=== PATIENT | female | born 1965 | race Caucasian/White ===

== ENCOUNTER 2017-11-11 08:16 | Outpatient (CLI) | payer BC | END 2017-11-11 08:17 | disposition home or self-care (01) | LOC: BICMAMMO 08:16 | PROVIDERS: ATTEND Obstetrics & Gynecology | DX: Z12.31 Encounter for screening mammogram for malignant neoplasm of breast (principal) | CPT/HCPCS: 77063; 77067 ==

== ENCOUNTER 2017-11-22 16:33 | Emergency (ER) | payer BC, OTHER ==
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
[2017-11-22 19:04] LABS: Bilirubin Negative (Negative); Blood, Urine Negative (Negative); Clarity Clear (Clear); Glucose, Urine (Dipstick) Negative (Negative); Leukocyte Negative (Negative); Nitrite Negative (Negative); Protein, Urine (Dipstick) Negative (Neg-Trace); Urobilinogen 0.2 mg/dL (0.2-1.0)
[2017-11-22] MEDS ORDERED: Acetaminophen/Codeine 30-300mg Tablet ONE (19:41)
== END 2017-11-22 19:47 | disposition home or self-care (01) ==
LOC: SCSER 16:33
DX: S16.1XXA Strain of muscle, fascia and tendon at neck level, initial encounter (principal); S29.012A Strain of muscle and tendon of back wall of thorax, initial encounter; S10.93XA Contusion of unspecified part of neck, initial encounter; S30.0XXA Contusion of lower back and pelvis, initial encounter; F32.9 Major depressive disorder, single episode, unspecified; Z79.899 Other long term (current) drug therapy; V43.62XA Car passenger injured in collision with other type car in traffic accident, initial encounter
CPT/HCPCS: 70450; 72125; 72170; 81003

== ENCOUNTER 2018-08-16 14:13 | Observation (INO) | payer BC ==
[2018-08-16] MEDS ORDERED: Nitroglycerin 0.4 MG TAB (25 Tab Bottle) ONE (14:52)
--- NOTE | 2018-08-16 15:14 | RAD ---
FRONTAL VIEW CHEST: Date: 08/16/18 INDICATION: Chest pain. FINDINGS: There is accentuation of the cardiac silhouette by portable technique. Mild interstitial prominence o f each lung is present, without consolidation or significant effusion. No discrete pneumothorax. IMPRESSION: Interstitial prominence of the lungs bilaterally, with borderline-sized cardiac silhouette. This may be related to fluid overload. Recommend clinical correlation and, if necessary, imaging follow-up may be obtained. POS: [facility]
[2018-08-16 15:18] LABS: #Basophils 0.1 thou/uL (0.0-0.2); #Eosinphils 0.1 thou/uL (0.0-0.7); #Lymphocytes 1.6 thou/uL (1.20-3.40); #Monocytes 0.5 thou/uL (0.11-0.59); #Neutrophils 3.6 thou/uL (1.40-6.50); %Basophils 1.1 % (0.0-1.0); %Eosinophils 1.3 % (0.0-10.0); %Lymphocytes 27.9 % (21.0-51.0); %Monocytes 8.1 % (0.0-10.0); %Neutrophils 61.6 % (42.0-75.0); Hemoglobin 14.1 g/dL (12.0-16.0); Mean Corpuscular HGB CONC 33.6 g/dL (32.0-36.0); Mean Corpuscular Hemoglobin 29.6 pg (27.0-31.0); Mean Platelet Volume 9.6 fL (7.4-10.4); Platelet Count 167 thou/uL (130-400); RBC Distribution Width 12.5 % (11.5-14.5); Red Blood Cell (RBC) Count 4.76 mill/uL (4.20-5.40); White Blood Cell (WBC) Count 5.8 thou/uL (4.8-10.8)
[2018-08-16 15:30] LABS: ALT (SGPT) 29 U/L (8-55); AST (SGOT) 17 U/L (5-34); Albumin 4.5 g/dL (3.5-5.0); Alkaline Phosphatase 61 U/L (40-150); Anion Gap 15 mmol/L (10-20); BUN (Urea Nitrogen) 11 mg/dL (9.8-20.1); Bilirubin, Total 0.5 mg/dL (0.2-1.2); Calc. Creatinine Clearance 0 mL/min (70-130); Carbon Dioxide 26 mmol/L (22-29); Chloride 106 mmol/L (98-107); Estimated GFR-MDRD 81; Globulin 2.4 g/dL (2.4-3.5); Glucose 94 mg/dL (70-105); Protein, Total 6.9 g/dL (6.0-8.3); Sodium 143 mmol/L (136-145)
[2018-08-16 15:31] LABS: CKMB 1.3 ng/mL (0-6.6); Troponin I Less than 0.010 ng/mL (< 0.028)
[2018-08-16] MEDS ORDERED: Lorazepam 1 MG TAB PO PRN (17:14)
[2018-08-16] MEDS ORDERED: Senokot 8.6 MG TAB PO PRN (17:14)
[2018-08-16] MEDS ORDERED: Benzonatate 100 MG CAP PO PRN (17:14)
[2018-08-16] MEDS ORDERED: Nitroglycerin 0.4 MG TAB (25 Tab Bottle) SL PRN (17:14)
[2018-08-16] MEDS ORDERED: cloNIDine 0.1 MG TAB PO PRN (17:14)
[2018-08-16] MEDS ORDERED: Senokot S 8.6-50 MG TAB PO PRN (17:14)
[2018-08-16] MEDS ORDERED: Acetaminophen 325 MG TAB PO PRN ×2 (17:14)
[2018-08-16] MEDS ORDERED: hydrALAZINE 20 MG/ML VIAL SLOW IVP PRN (17:14)
[2018-08-16] MEDS ORDERED: traMADol HCl 50 MG TAB PO PRN (17:14)
[2018-08-16] MEDS ORDERED: Calcium Carbonate 500 MG ChewTAB PO PRN (17:14)
[2018-08-16] MEDS ORDERED: Ondansetron HCl/PF 4 MG/2 ML Vial IVP PRN (17:14)
[2018-08-16] MEDS ORDERED: Bisacodyl 5 MG TAB PO PRN ×2 (17:14)
[2018-08-16 17:30] VITALS: BMI 32.6
--- NOTE | 2018-08-16 18:22 | HP ---
DATE OF ADMISSION: 08/16/2018 PRIMARY CARE PHYSICIAN: Hortencia Barbosa MD CHIEF COMPLAINT: Chest pain. HISTORY OF PRESENT ILLNESS: Ms. Barnett is a pleasant 53-year-old female with past medical history of DVT, currently on Eliquis, who presented to the emergency room with above-mentioned complaint. Hist ory is mainly obtained by the patient herself and electronic medical records have been reviewed. Ms. Barnett reports that she has seen Cardiology, Dr. Burgess for routine screening when she was referr ed by her primary care physician for stress test earlier this year. The stress test was normal, but they could not do the resting portion. In the followup appointment about few days ago, an echocardio gram was done and she was found to have some wall motion abnormalities and Dr. Burgess has been planni ng a cardiac catheterization on of this month. Today, Ms. Barnett woke up with a pressure-like sensation on her chest which she describes that "my do g is sitting on my chest." The sensation persisted throughout the day and it never went away. It wa s not associated with any dizziness, lightheadedness, nausea, vomiting, palpitation, shortness of shira ath, diaphoresis. She is otherwise very active and has no limitations in her activities because of shortness of breath or chest discomfort on a daily basis. She is a nonsmoker and has no family history of coronary arter y disease, stroke. She has no recent illnesses. No sick contacts. She presented to [facility] with these symptoms. On presentation, she was hemodynamically stable with blood pressure 128/70, pulse of 81, saturating 9 9% on room air. Initial workup was rather unremarkable. Cardiac enzymes are normal. Labs were norm al. Her 12-lead EKG had no ST or T-wave changes. There was a question of poor R-wave progression. Chest x-ray was unremarkable. She was given sublingual nitroglycerin and aspirin and is now being ad mitted for further workup of chest pain. PAST MEDICAL HISTORY: DVT, depression, osteoarthritis. PAST SURGICAL HISTORY: Tubal ligation. PSYCHIATRIC HISTORY: Depression. SOCIAL HISTORY: She is currently employed and lives with the family. No history of drug, tobacco or alcohol abuse. She is . FAMILY HISTORY: Significant for breast cancer in her mother and grandmother. Father had renal cance r. One of her sisters had some sort of skin cancer. ALLERGIES: DEMEROL, PHENERGAN, and STADOL. CURRENT MEDICATIONS: Eliquis 5 mg p.o. b.i.d., and Wellbutrin 100 mg 3 tablets daily. REVIEW OF SYSTEMS: A 12-point review of systems was done, it is negative except for those mentioned in the history and physical. LABORATORY DATA: CBC is unremarkable. Serum chemistry unremarkable. CK-MB and cardiac troponin nor mal, BNP normal. Chest x-ray by my review has no evidence of acute cardiopulmonary abnormality. A 1 2-lead EKG by my review shows normal sinus rhythm without any acute ST or T-wave changes. PHYSICAL EXAMINATION: VITAL SIGNS: Most recent temperature 97.9, pulse of 72, respirations 16, saturating 99% on room air, blood pressure 160/83. GENERAL: No acute distress, awake, alert, oriented x3. She is very pleasant. HEENT: Mucous membrane is moist and pink. No oropharyngeal exudate or erythema. Head is normocepha lic, atraumatic. Pupils equal, reactive to light and accommodation. Extraocular movement intact. NECK: Supple without any lymphadenopathy, JVD or bruit. CHEST: Clear to auscultation without wheezing, rales or rhonchi. CARDIOVASCULAR: Rhythm is regular without any murmur, rubs or gallops. ABDOMEN: Obese, soft, nontender, nondistended with positive bowel sounds. EXTREMITIES: Free of any cyanosis, clubbing, or edema. NEUROLOGIC: Nonfocal. SKIN: Free of any rashes or bruises. Feel warm and dry to touch. PSYCHIATRIC: Normal affect. IMPRESSION AND PLAN: 1. Chest pain. Ms. Barnett had some abnormal echo as an outpatient done in the Cardiology Clinic and will be admitted for further workup of cardiac disease. We will continue to trend serial cardiac en zymes and she has already had aspirin in the ER. We will hold the Eliquis and consult Cardiology for possible cardiac catheterization in the morning. She will be n.p.o. after midnight. Currently, she is hemodynamically stable. We will get the records of her echocardiogram and stress test done in e outpatient setting. 2. History of deep venous thrombosis. We will resume her Eliquis after the cardiac catheterization. Hold Eliquis in anticipation of the cath for now. The patient reports that she has had 2-3 episode s of deep vein thrombosis. This will be managed by primary care physician. 3. Depression. Continue Wellbutrin. 4. Moderate obesity. 5. Deep venous thrombosis and gastrointestinal prophylaxis. DISPOSITION: Ms. Barnett is currently being admitted to the hospital with complaints of chest pain an d ACS rule out and further workup for possible cardiac disease. She has been in observation status. Further management will depend upon her clinical course.
[2018-08-16 19:25] LABS: Troponin I Less than 0.010 ng/mL (< 0.028)
[2018-08-16] MEDS: Famotidine 20 MG TAB PO SCH (20:34)
[2018-08-16 21:51] LABS: Troponin I Less than 0.010 ng/mL (< 0.028)
[2018-08-17 04:46] LABS: Anion Gap 12 mmol/L (10-20); BUN (Urea Nitrogen) 11 mg/dL (9.8-20.1); Calc. Creatinine Clearance 146 mL/min (70-130); Calcium 9.6 mg/dL (7.8-10.44); Carbon Dioxide 25 mmol/L (22-29); Chloride 107 mmol/L (98-107); Estimated GFR-MDRD Greater than 90; Glucose 100 mg/dL (70-105); Potassium 4.1 mmol/L (3.5-5.1); Sodium 140 mmol/L (136-145)
[2018-08-17 04:49] LABS: #Eosinphils 0.1 thou/uL (0.0-0.7); #Lymphocytes 2.1 thou/uL (1.20-3.40); #Monocytes 0.5 thou/uL (0.11-0.59); #Neutrophils 2.4 thou/uL (1.40-6.50); %Basophils 0.6 % (0.0-1.0); %Eosinophils 2.4 % (0.0-10.0); %Lymphocytes 40.1 % (21.0-51.0); %Monocytes 9.8 % (0.0-10.0); %Neutrophils 47.2 % (42.0-75.0); Hemoglobin 14.1 g/dL (12.0-16.0); Mean Corpuscular HGB CONC 33.2 g/dL (32.0-36.0); Mean Corpuscular Hemoglobin 30.5 pg (27.0-31.0); Mean Corpuscular Volume 91.7 fL (78.0-98.0); Mean Platelet Volume 8.4 fL (7.4-10.4); Platelet Count 198 thou/uL (130-400); RBC Distribution Width 12.6 % (11.5-14.5); Red Blood Cell (RBC) Count 4.63 mill/uL (4.20-5.40); White Blood Cell (WBC) Count 5.1 thou/uL (4.8-10.8)
[2018-08-17] MEDS ORDERED: Enoxaparin Sodium 40 MG/0.4 ML SYRINGE SC SCH (09:00)
[2018-08-17] MEDS: Famotidine 20 MG TAB PO SCH (09:40)
[2018-08-17 15:36] VITALS: BP 107/66; TEMP 98.1
--- NOTE | 2018-08-17 21:41 | CON ---
DATE OF CONSULTATION: 08/17/2018 CARDIOLOGY CONSULTATION INDICATION FOR CONSULTATION: This is a 53-year-old female with chest pain. HISTORY OF PRESENT ILLNESS: This is a very pleasant 53-year-old female who has been followed by Dr. Burgess for some time. I actually saw her many years ago due to some, I believe, palpitations. [facility], she recently was seen in the office by Dr. Burgess with her and had been complaining of so me problems with DVTs in the past. She had been on Coumadin. This was then switched over to Eliquis , but she also at that time was noted to have an echocardiogram with ejection fraction of about 45%. The inferior wall was felt to be hypokinetic. She did have a normal stress test over a year ago and it was advised that perhaps she undergo a cardiac catheterization. She then yesterday noticed that she was having some chest tightness and some pressure. She has never had this before. She related i t possibly to anxiety. She also has been having some upset GI problems and some mild nausea. She is uncertain to whether or not she may have reflux, but she does have irritable bowel syndrome. She pr esented to the emergency room and was admitted. Her EKG is unremarkable. Cardiac enzymes are negati ve. She has had no further chest discomfort. She has been placed on H2 blockers and has been relati vely stable at this time. EKG did not show any changes to indicate ischemia. Her BNP was 53. PAST MEDICAL HISTORY: Significant for anxiety, depression, sleep apnea, tonsillectomy, bilateral tub al ligation and DVTs. ALLERGIES: She is allergic to DEMEROL, PHENERGAN, PROMETHAZINE, BUTORPHANOL, STADOL, MEPERIDINE. PRESENT MEDICATIONS: Prior to admission included vitamin D3, bupropion HCL, Adderall 20 mg, Eliquis 5 mg b.i.d. FAMILY HISTORY: Noncontributory for any early heart disease. SOCIAL HISTORY: She is . She has children who are alive and well. She has no significant al cohol or tobacco abuse. REVIEW OF SYSTEMS: Twelve point review of systems unremarkable except what was noted in the history of present illness. She denied any new HEENT complaints such as visual changes, hearing loss or tinn itus. She had no pulmonary complaints such as asthma, emphysema, bronchitis or significant shortness of breath. She had no significant GI complaints except for the discomfort, which is noted now. She does have some mild gastroesophageal reflux disease apparently. She had no complaints, no dysuri a, polyuria or hematuria. Neurologically no history of seizures or syncope. Musculoskeletal: She h as had some discomfort in the lower extremities and she did have a DVT in the left leg in the poplite al area apparently in the past, but at this time appears to be relatively unremarkable. PHYSICAL EXAMINATION: GENERAL: Reveals a well-developed, well-nourished female. VITAL SIGNS: Her vital signs are stable. Blood pressure is 128/80s, heart rates in the 80s and show s a normal sinus rhythm. She is afebrile, respiratory rate 16. HEENT: Shows the head to be normocephalic and atraumatic. Carotid pulses are present. There were n o bruits. There is no JVD. The thyroid is not enlarged. There are no masses palpable. CHEST: Clear to auscultation. There are no rales, rhonchi or wheezing noted. CARDIOVASCULAR: Exam reveals a regular rate and rhythm. There is a normal S1, S2. No S3, S4 was no kirit. There were no significant murmurs, heaves, thrills, bruits or rubs. ABDOMEN: Soft and nontender. Positive bowel sounds are present. No organomegaly or masses are note d. Femoral pulses are present. EXTREMITIES: Show no clubbing, cyanosis or edema. Pedal pulses are present. NEUROLOGIC: The patient appears to be fully intact. She has normal strength and tone. SKIN: Warm and dry. LABORATORY DATA: Shows hemoglobin of 14.1, WBC of 5.1, platelet count of 198,000. Creatinine 0.67, potassium 4.1, blood sugar 100. EKG shows no acute changes and normal sinus rhythm. She does have w hat appears to be left anterior fascicular block. IMPRESSION AND PLAN: 1. Atypical chest discomfort, which is most likely gastrointestinal in nature. This has improved af ter being given H2 blockers. I will continue these. I have suggested she get some ljvd-jun-ahboyff medications or at least take a Pepcid AC or Protonix twice a day or either take 40 mg a day in the ne xt 1 week to see whether or not this will resolve her symptoms. If not, then would suggest further e valuation. 2. 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 She does have a history of palpitations in the past, but at this time it appears to be stable. She will unde rgo a cardiac catheterization in the near future. This has already been scheduled. 3. History of deep vein thromboses. This is stable. There is no indication she has any new deep ve in thromboses at this time. 4. Anxiety. She will continue her present medications and with the history of deep vein thrombosis, she will also continue her Eliquis. This will be held prior to cardiac catheterization. From a car diac standpoint, she is stable and can be discharged to home and we will follow her up in the office in the next week or two.
--- NOTE | 2018-08-19 11:50 | DIS ---
DATE OF ADMISSION: 08/16/2018 DATE OF DISCHARGE: 08/17/2018 DISCHARGE DIAGNOSES: 1. Chest pain, improved. 2. Personal history of venous thrombosis and embolism, stable. 3. Major depressive disorder. CONSULTATION: Dr. Cheek, Cardiology. PERTINENT LABORATORY AND DIAGNOSTIC FINDINGS: WBC 5.1, RBC 4.63, hemoglobin 14.1. Sodium 140, potas sium 4.1, creatinine 0.67. Troponin within normal limits x3, alkaline phosphatase 61, CK-MB 1.3. BN P is 53.1. HOSPITAL COURSE: The patient was admitted after experiencing some chest pain, which had improved aft er the initiation of Pepcid. Serial enzymes were trended and remained within normal limits throughou t the hospital course. Her home dose of Eliquis was held and Cardiology was consulted due to outpati ent abnormal echocardiogram per primary regrind mill operator. However, Dr. Cheek with Cardiology determined n o further workup needed during inpatient and serial cardiac enzymes were within normal limits. The p greg has outpatient cardiac catheterization scheduled on 08/31/2018. Dr. Cheek determine the etiolo gy of her chest pain, was likely secondary to anxiety and/or reflux from GERD. She recommended richard nuing her home medications and adding Pepcid for reflux. Patient did not experience any further epis odes of chest pain for the remainder of hospital course. She was seen and examined prior to discharg e with and it was explained to her that she can continue on Eliquis and recommend following u p with her primary regrind mill operator, Dr. Burgess for further heart catheterization as outpatient. The nevaeh farrell and her showed their understanding and agreement with this plan and she was stable for d ischarge on 08/17/2018. DISCHARGE MEDICATIONS: 1. Pepcid 20 mg twice daily. 2. Vitamin D3 5000 units daily. 3. Apixaban 5 mg twice daily. 4. Bupropion hydrochloride 300 mg daily. 5. Dextroamphetamine/amphetamine 20 mg daily as needed for ADHD. 6. Vitamin B12 of 1000 mcg daily. FOLLOWUP: The patient is to follow up with her primary care physician, Dr. Hortencia Barbosa, in 1-2 weeks along with her primary regrind mill operator, Dr. Burgess, for outpatient cardiac catheterization on 08/31/2018 . CONDITION ON DISCHARGE: Stable. ACTIVITY: No restrictions. DIET: Regular. CODE STATUS: FULL, resuscitation. DISPOSITION: Home on 08/17/2018.
== END 2018-08-17 17:09 | disposition home or self-care (01) ==
LOC: SCSER 14:13 → 2SW 17:07
PROVIDERS: ADMIT Internal Medicine; ATTEND Internal Medicine
DX: R07.89 Other chest pain (principal); F32.9 Major depressive disorder, single episode, unspecified; M19.90 Unspecified osteoarthritis, unspecified site; F41.9 Anxiety disorder, unspecified; G47.30 Sleep apnea, unspecified; I42.9 Cardiomyopathy, unspecified; K21.9 Gastro-esophageal reflux disease without esophagitis; E66.8 Other obesity; Z68.32 Body mass index [BMI] 32.0-32.9, adult; Z86.718 Personal history of other venous thrombosis and embolism; Z79.01 Long term (current) use of anticoagulants; Z79.899 Other long term (current) drug therapy; Z88.5 Allergy status to narcotic agent; Z88.8 Allergy status to other drugs, medicaments and biological substances
CPT/HCPCS: 36415; 71045; 80048; 80053; 82553; 83880; 84484; 85025; 93005; G0378

== ENCOUNTER 2019-03-31 18:34 | Emergency (ER) | payer BC ==
--- NOTE | 2019-03-31 19:46 | RAD ---
RIGHT FOOT: 03/31/19 Three views. HISTORY: Foot pain. COMPARISON: 03/11/19. The foot also compared to 02/06/19. Enthesophytes are seen from the posterior and plantar calcaneus which are stable. Mild degenerative c hange at the tarsometatarsal and at the first MTP. These findings are stable. No fracture or acute ab normality. IMPRESSION: Degenerative changes as described. No change from recent exams of the right foot. POS: [facility]
== END 2019-03-31 19:45 | disposition home or self-care (01) ==
LOC: SCSER 18:34
DX: S90.31XA Contusion of right foot, initial encounter (principal); I49.9 Cardiac arrhythmia, unspecified; M19.90 Unspecified osteoarthritis, unspecified site; F32.9 Major depressive disorder, single episode, unspecified; Z79.899 Other long term (current) drug therapy; Z86.718 Personal history of other venous thrombosis and embolism; Z79.01 Long term (current) use of anticoagulants; W20.8XXA Other cause of strike by thrown, projected or falling object, initial encounter
CPT/HCPCS: 87086

== ENCOUNTER 2019-08-13 17:49 | Emergency (ER) | payer BC ==
[2019-08-13 18:22] LABS: Bilirubin Negative (Negative); Blood, Urine Large (Negative); Clarity Cloudy (Clear); Glucose, Urine (Dipstick) Negative (Negative); Leukocyte Negative (Negative); Nitrite Negative (Negative); Protein, Urine (Dipstick) Negative (Neg-Trace)
[2019-08-13 18:30] LABS: RBC/HPF Greater than 50 HPF (0-3); Squamous Epithelial 0-3 HPF (0-3)
[2019-08-13 18:31] LABS: Bacteria/HPF Rare-Few HPF (None Seen); Mucous/LPF 1+ LPF (<2+)
== END 2019-08-13 18:37 | disposition home or self-care (01) ==
LOC: SCSER 17:49
DX: R31.9 Hematuria, unspecified (principal); Z86.718 Personal history of other venous thrombosis and embolism; F32.9 Major depressive disorder, single episode, unspecified
CPT/HCPCS: 36415; 81015; 85610; 99283

== ENCOUNTER 2019-09-28 07:36 | Outpatient (CLI) | payer BC ==
[2019-09-28 08:11] LABS: Bilirubin Small (Negative); Blood, Urine Large (Negative); Clarity Turbid (Clear); Glucose, Urine (Dipstick) Negative (Negative); Leukocyte Negative (Negative); Nitrite Negative (Negative); Protein, Urine (Dipstick) 30 mg/dL (Neg-Trace); Urobilinogen 0.2 mg/dL (Less than 2)
[2019-09-28 08:23] LABS: Mucous/LPF 3+ LPF (<2+)
[2019-09-28 08:27] LABS: Bacteria/HPF 2+ HPF (None Seen); RBC/HPF Greater than 50 HPF (0-3); Squamous Epithelial 0-3 HPF (0-3)
--- NOTE | 2019-09-28 09:54 | CT ---
CT ABDOMEN AND PELVIS PERFORMED WITH AND WITHOUT CONTRAST ENHANCEMENT: HISTORY: Hematuria. History of kidney stones. COMPARISON: None. FINDINGS: The lung bases are clear of any infiltrative process. The liver and spleen show no focal abnormalities. The liver is upper limits of normal in size measur ing 18 cm. The spleen is within normal limits. The pancreas and gallbladder regions are normal. Right adrenal gland is normal. There is a 1.3 cm indeterminate left adrenal mass. It does not have definite CT Hounsfield unit numbers of an adenoma, although still statistically most likely a benign lesion. Bilateral nonobstructing renal calculi are seen. No ureteral calculi are visualized. A sma ll approximately slightly greater than 1 cm upper pole left renal cyst and a tiny subcentimeter right renal cyst are identified. There are small subcentimeter periaortic lymph nodes that do not appear significantly enlarged. There is also some mild mesenteric lymphadenopathy which is nonspecific and could indicate an adenitis. CT OF PELVIS PERFORMED WITH AND WITHOUT CONTRAST ENHANCEMENT: Bilateral tubal ligation is noted. Bladder is incompletely distended. No adenopathy or mass. IMPRESSION: 1. Punctate bilateral nonobstructing renal calculi. 2. Small renal cysts. 3. Some mild mesenteric adenopathy, nonspecific. It could indicate an adenitis. 4. Bilateral tubal ligation. POS: [facility]
== END 2019-09-28 07:37 | disposition home or self-care (01) ==
LOC: SCSCT 07:36
PROVIDERS: ATTEND Urology
DX: R31.9 Hematuria, unspecified (principal); Z87.442 Personal history of urinary calculi
CPT/HCPCS: 74178; 81001; 87086

== ENCOUNTER 2019-11-04 08:32 | Outpatient (CLI) | payer BC ==
--- NOTE | 2019-11-04 09:45 | MRI ---
MR the abdomen with and without IV contrast INDICATION: 54-year-old female with hematuria and left adrenal mass COMPARISON: Prior CT the abdomen and pelvis with and without contrast dated September 28, 2019. Contrast: 20 cc of MultiHance was utilized for the exam. FINDINGS: There is a 1.4 cm nodule with the left adrenal gland that demonstrates evidence of signal dropout on in and out of phase images consistent with a left adrenal adenoma. The right adrenal gland is normal-appearing. There is a 1.2 cm cyst involving the superior pole of the left kidney. There is a t iny subcentimeter cyst involving the superior pole of the right kidney. No additional focal renal lesion is evident. No free fluid or enlarged lymph nodes are evident. There is mild fatty infiltratio n of the liver. There are areas of focal fatty sparing near the gallbladder fossa. The pancreas appears within normal limits. No intrahepatic or extra hepatic ductal dilatation is evident. The sple en measures 11.8 cm. No free fluid is identified. There is mild thoracolumbar scoliosis. IMPRESSION: 1. Left adrenal adenoma. 2. Bilateral renal cysts. 3. Mild fatty liver.
== END 2019-11-04 08:33 | disposition home or self-care (01) ==
LOC: BICMRI 08:32
PROVIDERS: ATTEND Urology
DX: R31.9 Hematuria, unspecified (principal); E27.8 Other specified disorders of adrenal gland; N28.1 Cyst of kidney, acquired; K76.0 Fatty (change of) liver, not elsewhere classified
CPT/HCPCS: 74183

== ENCOUNTER 2020-08-08 13:15 | Outpatient (CLI) | payer BC ==
--- NOTE | 2020-08-14 12:05 | MMO ---
Bilateral MAMMO Bilat Screen [facility]. CLINICAL HISTORY: Patient is 55 years old and is seen for screening. The patient has the following family history of breast cancer: maternal grandmother, at age 75, bilateral and mother, at age 70. The patient has no personal history of cancer. The patient has a history of right Ultrasound Guided Core Biopsy in July, - benign. VIEWS: The views performed were: bilateral craniocaudal with tomosynthesis and bilateral mediolateral oblique with tomosynthesis. FILMS COMPARED: The present examination has been compared to prior imaging studies performed at [facility] on 06/10/2019, and at [facility] on 10/23/2016, 10/30/2016 and 11/11/2017. This study has been interpreted with the assistance of computer-aided detection. MAMMOGRAM FINDINGS: There are scattered fibroglandular densities. There are benign appearing calcifications seen in both breasts. There are no suspicious masses, suspicious calcifications, or new areas of architectural distortion. IMPRESSION: THERE IS NO MAMMOGRAPHIC EVIDENCE OF MALIGNANCY. A ROUTINE FOLLOW-UP MAMMOGRAM IN 1 YEAR IS RECOMMENDED. THE RESULTS OF THIS EXAM WERE SENT TO THE PATIENT. ACR BI-RADS Category 2 - Benign finding MAMMOGRAPHY NOTE: 1. A negative mammogram report should not delay a biopsy if a dominant of clinically suspicious mass is present. 2. Approximately 10% to 15% of breast cancers are not detected by mammography. 3. Adenosis and dense breasts may obscure an underlying neoplasm. Reported by: CHRIS JENKINS MD Electonically Signed: [id number]
== END 2020-08-08 13:16 | disposition home or self-care (01) ==
LOC: BICMAMMO 13:15
PROVIDERS: ATTEND Student in an Organized Health Care Education/Training Program
DX: Z12.31 Encounter for screening mammogram for malignant neoplasm of breast (principal); Z80.3 Family history of malignant neoplasm of breast; Z91.89 Other specified personal risk factors, not elsewhere classified
CPT/HCPCS: 77063; 77067

== ENCOUNTER 2021-03-27 14:20 | Outpatient (CLI) | payer BC ==
[2021-03-27] MEDS ORDERED: DEXAMETHASONE SLOW IVP SCH (15:15)
[2021-03-27] MEDS ORDERED: ADMIXTURE FEE SLOW IVP SCH (15:15)
[2021-03-27] MEDS ORDERED: LIDOCAINE 1% SLOW IVP SCH (15:15)
== END 2021-03-27 14:21 | disposition home or self-care (01) ==
LOC: RAD 14:20
PROVIDERS: ATTEND Family Medicine Sports Medicine
DX: M25.851 Other specified joint disorders, right hip (principal); M16.11 Unilateral primary osteoarthritis, right hip
CPT/HCPCS: 77002; J1100; J2001

== ENCOUNTER 2021-06-05 09:40 | Outpatient (CLI) | payer BC | END 2021-06-05 09:41 | disposition home or self-care (01) | LOC: RAD 09:40 | PROVIDERS: ATTEND Urology | DX: N20.0 Calculus of kidney (principal) | CPT/HCPCS: 74018 ==

== ENCOUNTER 2021-06-27 10:12 | Day surgery (SDC) | payer BC ==
[2021-06-27 11:10] LABS: Bacteria/HPF None Seen HPF (None Seen); Bilirubin Negative (Negative); Blood, Urine 1+ (Negative); Clarity Clear (Clear); Glucose, Urine (Dipstick) Normal (Negative); Ketone, Urine Negative (Negative); Leukocyte 75 Leu/uL (Negative); Nitrite Negative (Negative); Protein, Urine (Dipstick) 30 mg/dL (Neg-Trace); Specific Gravity, Urine 1.023 (1.002-1.036); Squamous Epithelial 0-3 HPF (0-3); Urobilinogen Normal mg/dL (Less than 2)
[2021-06-27] MEDS ORDERED: Levofloxacin 500 mg/D5W 100 ml Premix Bag ONE (11:18)
[2021-06-27 11:30] LABS: #Eosinphils 0.1 thou/uL (0.0-0.7); #Lymphocytes 2.8 thou/uL (1.20-3.40); #Monocytes 0.6 thou/uL (0.11-0.59); #Neutrophils 3.1 thou/uL (1.40-6.50); %Basophils 0.7 % (0.0-1.0); %Eosinophils 1.7 % (0.0-10.0); %Lymphocytes 41.3 % (21.0-51.0); %Monocytes 9.1 % (0.0-10.0); %Neutrophils 47.2 % (42.0-75.0); Hemoglobin 14.8 g/dL (12.0-16.0); Mean Corpuscular HGB CONC 33.9 g/dL (32.0-36.0); Mean Corpuscular Hemoglobin 30.9 pg (27.0-31.0); Mean Corpuscular Volume 91.1 fL (78.0-98.0); Mean Platelet Volume 7.9 fL (7.4-10.4); Platelet Count 247 thou/uL (130-400); RBC Distribution Width 12.6 % (11.5-14.5); Red Blood Cell (RBC) Count 4.77 mill/uL (4.20-5.40); White Blood Cell (WBC) Count 6.7 thou/uL (4.8-10.8)
[2021-06-27 11:45] LABS: ALT (SGPT) 32 U/L (8-55); AST (SGOT) 16 U/L (5-34); Albumin 4.3 g/dL (3.5-5.0); Alkaline Phosphatase 68 U/L (40-110); Anion Gap 15 mmol/L (10-20); BUN (Urea Nitrogen) 14 mg/dL (9.8-20.1); Bilirubin, Total 0.9 mg/dL (0.2-1.2); Calc. Creatinine Clearance 0 mL/min (70-130); Calcium 9.6 mg/dL (7.8-10.44); Carbon Dioxide 33 mmol/L (22-29); Chloride 103 mmol/L (98-107); Globulin 2.5 g/dL (2.4-3.5); Glucose 111 mg/dL (70-105); Potassium 4.8 mmol/L (3.5-5.1); Protein, Total 6.8 g/dL (6.0-8.3); Sodium 146 mmol/L (136-145)
[2021-06-27 12:37] LABS: PTT 32.4 sec (22.9-36.1); Prothrombin Time 22.4 sec (12.0-14.7)
[2021-06-27] MEDS ORDERED: Famotidine/PF 20 mg/2ml Vial ONE (12:41)
[2021-06-27] MEDS ORDERED: Fentanyl 100 MCG/2 ML VIAL ONE ×2 (12:41→15:01)
[2021-06-27 13:20] LABS: SARS-CoV-2 NAA Rapid Test Not Detected (NotDetected)
[2021-06-27] MEDS ORDERED: Iothalamate Meglumine 60% 30 ML VIAL FS ONE (14:05)
[2021-06-27] MEDS ORDERED: Dexamethasone 20 MG/5 ML VIAL ONE (14:19)
[2021-06-27] MEDS ORDERED: PROPOFOL 200 MG/20 ML VIAL ONE (14:19)
[2021-06-27] MEDS ORDERED: Ondansetron PF 4 MG/2 ML Vial ONE (14:19)
[2021-06-27] MEDS ORDERED: Lidocaine 1% PF 5 ML VIAL ONE (14:19)
[2021-06-27] MEDS ORDERED: Metoclopramide HCl 10 MG/2 ML VIAL ONE (14:19)
[2021-06-27] MEDS ORDERED: Phenazopyridine HCl 100 MG TAB ONE ×2 (15:01→15:03)
[2021-06-27] MEDS ORDERED: Oxybutynin 5 MG TAB ONE (15:01)
[2021-06-27] MEDS ORDERED: HYDROcodone/Acetaminophen 5/325 mg Tablet ONE (16:32)
== END 2021-06-27 16:50 | disposition home or self-care (01) ==
LOC: ERS 10:12 → EDSTATUS 11:06 → SDC 11:53
PROVIDERS: ATTEND Urology
PROC: 0T778DZ Dilation of Left Ureter with Intraluminal Device, Via Natural or Artificial Opening Endoscopic (ICD-10-PCS; principal; 2021-06-27)
DX: N20.0 Calculus of kidney (principal); N28.1 Cyst of kidney, acquired; D35.02 Benign neoplasm of left adrenal gland; J45.909 Unspecified asthma, uncomplicated; M19.90 Unspecified osteoarthritis, unspecified site; I25.10 Atherosclerotic heart disease of native coronary artery without angina pectoris; I42.0 Dilated cardiomyopathy; Z86.718 Personal history of other venous thrombosis and embolism; Z79.01 Long term (current) use of anticoagulants; Z79.899 Other long term (current) drug therapy; Z88.5 Allergy status to narcotic agent; Z88.8 Allergy status to other drugs, medicaments and biological substances; Z20.822 Contact with and (suspected) exposure to COVID-19
CPT/HCPCS: 36415; 74018; 74420; 80053; 81003; 81015; 85025; 85610; 85730; 87086; C2617; J1100; J1956; J2405; J2704; J2765; J3010; S0028; U0002; U0005

== ENCOUNTER 2021-07-02 06:22 | Day surgery (SDC) | payer BC ==
[2021-06-29 11:35] VITALS: BMI 34.9
[2021-07-02] MEDS ORDERED: Iothalamate Meglumine 60% 30 ML VIAL FS ONE (06:49)
[2021-07-02] MEDS ORDERED: Midazolam HCl 2 mg/2 ml Vial ONE (06:57)
[2021-07-02] MEDS ORDERED: Fentanyl 100 MCG/2 ML VIAL ONE ×2 (06:57)
[2021-07-02] MEDS ORDERED: Levofloxacin 500 mg/D5W 100 ml Premix Bag ONE (07:16)
[2021-07-02 07:27] LABS: PTT 27.1 sec (22.9-36.1)
[2021-07-02] MEDS ORDERED: Dexamethasone 20 MG/5 ML VIAL ONE (07:34)
[2021-07-02] MEDS ORDERED: Ondansetron PF 4 MG/2 ML Vial ONE (07:34)
[2021-07-02] MEDS ORDERED: PROPOFOL 200 MG/20 ML VIAL ONE (07:34)
[2021-07-02] MEDS ORDERED: Glycopyrrolate 0.2 MG/ML 5 ML SYRINGE ONE (07:34)
[2021-07-02] MEDS ORDERED: Rocuronium Bromide 10 MG/ML (10ML VIAL) ONE (07:34)
[2021-07-02] MEDS ORDERED: Lidocaine 1% PF 5 ML VIAL ONE (07:34)
[2021-07-02] MEDS ORDERED: Phenazopyridine HCl 100 MG TAB ONE (09:09)
[2021-07-02] MEDS ORDERED: Hyoscyamine Sulfate SL 0.125 mg Tablet ONE (09:09)
[2021-07-02] MEDS ORDERED: HYDROcodone/Acetaminophen 5/325 mg Tablet ONE (10:05)
[2021-07-06 21:07] LABS: CA Oxalate Dihydrate 95 % (.); Color Brown (.); Stone Weight 160 mg (.)
== END 2021-07-02 11:34 | disposition home or self-care (01) ==
LOC: SDC 06:22
PROVIDERS: ATTEND Urology
PROC: 0T778DZ Dilation of Left Ureter with Intraluminal Device, Via Natural or Artificial Opening Endoscopic (ICD-10-PCS; principal; 2021-07-02)
PROC: 0TC18ZZ Extirpation of Matter from Left Kidney, Via Natural or Artificial Opening Endoscopic (ICD-10-PCS; principal; 2021-07-02)
DX: N20.0 Calculus of kidney (principal); N28.1 Cyst of kidney, acquired; D35.02 Benign neoplasm of left adrenal gland; I42.0 Dilated cardiomyopathy; J45.909 Unspecified asthma, uncomplicated; I25.10 Atherosclerotic heart disease of native coronary artery without angina pectoris; E66.01 Morbid (severe) obesity due to excess calories; Z68.35 Body mass index [BMI] 35.0-35.9, adult; Z86.718 Personal history of other venous thrombosis and embolism; Z87.440 Personal history of urinary (tract) infections; Z80.51 Family history of malignant neoplasm of kidney; Z79.01 Long term (current) use of anticoagulants; Z79.899 Other long term (current) drug therapy; Z88.5 Allergy status to narcotic agent; Z88.8 Allergy status to other drugs, medicaments and biological substances
CPT/HCPCS: 36415; 74018; 74420; 82365; 85610; 85730; 88300; 93005; 93010; C2617; J1100; J1956; J2250; J2405; J2704; J3010

== ENCOUNTER 2021-07-11 10:23 | Outpatient (CLI) | payer BC | END 2021-07-11 10:24 | disposition home or self-care (01) | LOC: RAD 10:23 | PROVIDERS: ATTEND Urology | DX: N20.0 Calculus of kidney (principal); N28.89 Other specified disorders of kidney and ureter | CPT/HCPCS: 74018 ==

== ENCOUNTER 2021-11-30 09:56 | Outpatient (CLI) | payer BC | END 2021-11-30 09:57 | disposition home or self-care (01) | LOC: NM 09:56 | PROVIDERS: ATTEND Specialist | DX: E21.3 Hyperparathyroidism, unspecified (principal) | CPT/HCPCS: 78072; A9500 ==

== ENCOUNTER 2022-02-14 10:37 | Day surgery (SDC) | payer BC ==
[2022-02-11 12:13] VITALS: BMI 34.9
[2022-02-14] MEDS ORDERED: Midazolam HCl 2 mg/2 ml Vial ONE (11:49)
[2022-02-14] MEDS ORDERED: Lidocaine 1% w/Epinephrine 1:100K 20 ML VIAL ONE (12:24)
[2022-02-14] MEDS ORDERED: Fentanyl 100 MCG/2 ML VIAL ONE ×4 (12:25→15:58)
[2022-02-14] MEDS ORDERED: Dexamethasone 20 MG/5 ML VIAL ONE (13:34)
[2022-02-14] MEDS ORDERED: PROPOFOL 200 MG/20 ML VIAL ONE (13:34)
[2022-02-14] MEDS ORDERED: Lidocaine 1% PF 5 ML VIAL ONE (13:34)
[2022-02-14] MEDS ORDERED: Ondansetron PF 4 MG/2 ML Vial ONE (13:34)
[2022-02-14] MEDS ORDERED: Hydrocodone-Acetamin 15 ML UDCUP ONE (17:43)
== END 2022-02-14 18:15 | disposition home or self-care (01) ==
LOC: SDC 10:37
PROVIDERS: ATTEND Specialist
PROC: 0GBL0ZZ Excision of Right Superior Parathyroid Gland, Open Approach (ICD-10-PCS; principal; 2022-02-14)
DX: D35.1 Benign neoplasm of parathyroid gland (principal); E21.0 Primary hyperparathyroidism; I25.10 Atherosclerotic heart disease of native coronary artery without angina pectoris; Z87.442 Personal history of urinary calculi; Z79.01 Long term (current) use of anticoagulants; Z79.899 Other long term (current) drug therapy; Z88.8 Allergy status to other drugs, medicaments and biological substances
CPT/HCPCS: 88305; 88331; 88334; C1776; C1889; J1100; J2250; J2405; J2704; J3010

== ENCOUNTER 2022-04-10 10:45 | Outpatient (CLI) | payer BC | END 2022-04-10 10:46 | disposition home or self-care (01) | LOC: BICRAD 10:45 | PROVIDERS: ATTEND Urology | DX: N20.0 Calculus of kidney (principal) | CPT/HCPCS: 74018 ==

== ENCOUNTER 2022-07-16 13:01 | Outpatient (CLI) | payer BC | END 2022-07-16 13:02 | disposition home or self-care (01) | LOC: CT 13:01 | PROVIDERS: ATTEND Urology | DX: N13.2 Hydronephrosis with renal and ureteral calculous obstruction (principal); E27.8 Other specified disorders of adrenal gland; K42.9 Umbilical hernia without obstruction or gangrene | CPT/HCPCS: 74176 ==

== ENCOUNTER 2022-07-16 14:57 | Outpatient (CLI) | payer BC ==
[2022-07-16 16:43] LABS: Hemoglobin 14.9 g/dL (12.0-15.5); Mean Corpuscular HGB CONC 34.9 g/dL (32.0-36.0); Mean Corpuscular Hemoglobin 30.8 pg (27.0-33.0); Mean Corpuscular Volume 88.4 fl (81.6-98.3); Mean Platelet Volume 11.7 fl (7.4-10.4); Platelet Count 226 10x3/uL (150-450); RBC Distribution Width 13.6 % (11.5-14.5); Red Blood Cell (RBC) Count 4.83 10x6/uL (3.90-5.03); White Blood Cell (WBC) Count 6.4 10x3/uL (3.5-10.5)
[2022-07-16 16:51] LABS: PTT 26.8 sec (22.0-33.0); Prothrombin Time 10.9 sec (9.5-12.1)
[2022-07-16 17:00] LABS: Anion Gap 13 mmol/L (10-20); BUN (Urea Nitrogen) 9 mg/dL (9.8-20.1); Calc. Creatinine Clearance 0 mL/min (70-130); Calcium 9.1 mg/dL (7.8-10.44); Carbon Dioxide 26 mmol/L (22-29); Chloride 105 mmol/L (98-107); Estimated GFR 100; Glucose 104 mg/dL (70-105); Potassium 4.1 mmol/L (3.5-5.1); Sodium 140 mmol/L (136-145)
== END 2022-07-16 14:58 | disposition home or self-care (01) ==
LOC: LABBT 14:57
PROVIDERS: ATTEND Urology
DX: Z01.818 Encounter for other preprocedural examination (principal); N28.1 Cyst of kidney, acquired; R82.89 Other abnormal findings on cytological and histological examination of urine; D35.02 Benign neoplasm of left adrenal gland; E34.9 Endocrine disorder, unspecified; Z86.718 Personal history of other venous thrombosis and embolism; Z79.01 Long term (current) use of anticoagulants; Z80.51 Family history of malignant neoplasm of kidney; Z87.440 Personal history of urinary (tract) infections; Z20.822 Contact with and (suspected) exposure to COVID-19; N13.2 Hydronephrosis with renal and ureteral calculous obstruction; E27.8 Other specified disorders of adrenal gland; K42.9 Umbilical hernia without obstruction or gangrene
CPT/HCPCS: 74176; 80048; 81001; 85027; 85610; 85730; 87086; 87811; 93005; 93010

== ENCOUNTER 2022-07-17 09:42 | Day surgery (SDC) | payer BC ==
[2022-07-16 15:35] VITALS: BMI 34.9
[2022-07-17] MEDS ORDERED: Iopamidol 30 ML ONE (12:44)
[2022-07-17] MEDS ORDERED: SUGAMMADEX SODIUM 200 MG/2 ML VIAL ONE (12:50)
[2022-07-17] MEDS ORDERED: Midazolam HCl 2 mg/2 ml Vial ONE ×2 (12:50→12:54)
[2022-07-17] MEDS ORDERED: fentaNYL Citrate/PF 100 MCG/2 ML SYRINGE ONE (12:50)
[2022-07-17] MEDS ORDERED: Levofloxacin 500 mg/D5W 100 ml Premix Bag ONE (12:54)
[2022-07-17] MEDS ORDERED: Metoclopramide HCl 10 MG/2 ML VIAL ONE (13:04)
[2022-07-17] MEDS ORDERED: Phenylephrine 10 MG/ML VIAL ONE (13:04)
[2022-07-17] MEDS ORDERED: ePHEDrine 50 MG/ML VIAL ONE (13:04)
[2022-07-17] MEDS ORDERED: Dexamethasone 20 MG/5 ML VIAL ONE (13:04)
[2022-07-17] MEDS ORDERED: PROPOFOL 200 MG/20 ML VIAL ONE (13:04)
[2022-07-17] MEDS ORDERED: Rocuronium Bromide 10 MG/ML (10ML VIAL) ONE (13:04)
[2022-07-17] MEDS ORDERED: Lidocaine 1% MPF 2 ML VIAL ONE (13:04)
[2022-07-17] MEDS ORDERED: Oxybutynin 5 MG TAB ONE (14:19)
[2022-07-17] MEDS ORDERED: Phenazopyridine HCl 100 MG TAB ONE (14:19)
[2022-07-17] MEDS ORDERED: HYDROcodone/Acetaminophen 5/325 mg Tablet ONE ×2 (15:19→16:02)
== END 2022-07-17 16:15 | disposition home or self-care (01) ==
LOC: SDC 09:42
PROVIDERS: ATTEND Urology
DX: N13.2 Hydronephrosis with renal and ureteral calculous obstruction (principal); D35.02 Benign neoplasm of left adrenal gland; E89.2 Postprocedural hypoparathyroidism; J45.909 Unspecified asthma, uncomplicated; I25.10 Atherosclerotic heart disease of native coronary artery without angina pectoris; I42.0 Dilated cardiomyopathy; E66.01 Morbid (severe) obesity due to excess calories; Z68.35 Body mass index [BMI] 35.0-35.9, adult; Z86.718 Personal history of other venous thrombosis and embolism; Z80.51 Family history of malignant neoplasm of kidney; Z79.01 Long term (current) use of anticoagulants; Z79.83 Long term (current) use of bisphosphonates; Z79.899 Other long term (current) drug therapy; Z88.8 Allergy status to other drugs, medicaments and biological substances
CPT/HCPCS: 74018; 74420; C2617; J1100; J1956; J2250; J2370; J2704; J2765; J3490; Q9967

== ENCOUNTER 2022-09-20 08:01 | Outpatient (CLI) | payer BC | END 2022-09-20 08:02 | disposition home or self-care (01) | LOC: BICULT 08:01 | PROVIDERS: ATTEND Urology | DX: N20.0 Calculus of kidney (principal); N28.1 Cyst of kidney, acquired | CPT/HCPCS: 74018; 76770 ==

== ENCOUNTER 2023-11-07 08:37 | Outpatient (CLI) | payer BC | END 2023-11-07 08:38 | disposition home or self-care (01) | LOC: SCSRAD 08:37 | PROVIDERS: ATTEND Urology | DX: R39.15 Urgency of urination (principal); Z87.442 Personal history of urinary calculi; N20.0 Calculus of kidney | CPT/HCPCS: 74018 ==

== ENCOUNTER 2024-04-19 09:26 | Outpatient (CLI) | payer BC | END 2024-04-19 09:27 | disposition home or self-care (01) | LOC: SCSRAD 09:26 | PROVIDERS: ATTEND Urology | DX: N20.0 Calculus of kidney (principal); E34.8 Other specified endocrine disorders | CPT/HCPCS: 74018 ==

== ENCOUNTER 2025-06-17 09:40 | Outpatient (CLI) | payer BC | END 2025-06-17 09:41 | disposition home or self-care (01) | LOC: SCSRAD 09:40 | PROVIDERS: ATTEND Family Medicine | DX: M53.3 Sacrococcygeal disorders, not elsewhere classified (principal); M46.1 Sacroiliitis, not elsewhere classified | CPT/HCPCS: 72220 ==

== ENCOUNTER 2025-07-22 10:24 | Outpatient (CLI) | payer BC | END 2025-07-22 10:25 | disposition home or self-care (01) | LOC: RAD 10:24 | PROVIDERS: ATTEND Urology | DX: N20.0 Calculus of kidney (principal) | CPT/HCPCS: 74018 ==

== ENCOUNTER 2025-08-16 06:38 | Day surgery (SDC) | payer BC ==
[2025-08-12 12:18] VITALS: BMI 35.7
[2025-08-16] MEDS ORDERED: PHENYLEPHRINE-NS 100 MCG/ML 10 ML SYRINGE ONE (07:45)
[2025-08-16] MEDS ORDERED: Iopamidol 370 76% 100 ML VIAL ONE (10:07)
== END 2025-08-16 13:44 | disposition home or self-care (01) ==
LOC: SDC 06:38
PROVIDERS: ATTEND Internal Medicine Cardiovascular Disease
PROC: 4A023N7 Measurement of Cardiac Sampling and Pressure, Left Heart, Percutaneous Approach (ICD-10-PCS; principal; 2025-08-16)
DX: I42.0 Dilated cardiomyopathy (principal); E78.5 Hyperlipidemia, unspecified; G47.33 Obstructive sleep apnea (adult) (pediatric); J45.909 Unspecified asthma, uncomplicated; M19.90 Unspecified osteoarthritis, unspecified site; I25.10 Atherosclerotic heart disease of native coronary artery without angina pectoris
CPT/HCPCS: 93458; 99152; 99153; C1769; C1894; Q9967